=== PATIENT | male | born 1995 | race Caucasian/White ===

== ENCOUNTER 2016-12-04 06:40 | Inpatient (IN) | payer MEDICAID ==
[~2016-12-04] VITALS: Ht 185.4 cm; Wt 57.5 kg
[2016-12-04 07:19] LABS: BASOPHILS % (AUTO) 0.1 % (0.0-2.0); EOSINOPHILS # (AUTO) 0.02 K/uL (0.00-0.70); EOSINOPHILS % (AUTO) 0.25 % (1.0-6.0); HEMATOCRIT 48.1 % (41-53); HEMOGLOBIN 16.4 g/dL (13.5-17.5); LYMPHOCYTES % (AUTO) 10.6 % (22.0-44.0); MEAN CORPUSCULAR HEMOGLOBIN 29.7 pg (26.0-34.0); MEAN CORPUSCULAR VOLUME 87 fL (80-100); MONOCYTES # (AUTO) 0.1 K/uL (0.1-1.0); MONOCYTES % (AUTO) 0.9 % (2.0-9.0); NEUTROPHILS # (AUTO) 8.1 K/uL (1.8-7.7); PLATELET COUNT (AUTO) 230 K/uL (150-450); RED BLOOD CELL COUNT(AUTO) 5.51 MIL/uL (4.50-5.90); RED CELL DISTRIBUTION WIDTH 12.9 % (11.5-14.5); WHITE BLOOD COUNT (AUTO) 9.2 K/uL (4.5-11.0)
[2016-12-04 07:23] LABS: NEUTROPHILS % (AUTO) 88.2 % (40.0-70.0)
[2016-12-04 07:31] LABS: ANION GAP 11 mmol/L (8-16); CALCIUM, TOTAL 9.3 mg/dL (8.8-10.5); CARBON DIOXIDE 27 mmol/L (22-29); CHLORIDE 103 mmol/L (98-107); CREATININE 1.18 mg/dL (0.60-1.30); GLOMERULAR FILTR. RATE CALC > 60 mL/min (>60); POTASSIUM 3.2 mmol/L (3.5-5.1); SODIUM SERUM 141 mmol/L (136-145); UREA NITROGEN, BLOOD 17 mg/dL (7-18)
[2016-12-04 07:37] LABS: ALANINE AMINOTRANSFERASE 21 U/L (12-78); ALBUMIN 4.5 g/dL (3.4-5.0); ASPARTATE AMINOTRANSFERASE 17 U/L (15-37); BILIRUBIN,TOTAL 0.7 mg/dL (0.1-1.0); TOTAL PROTEIN, SERUM 8.3 g/dL (6.4-8.2)
[2016-12-04] MEDS: FLUoxetine HCL 20 MG CAPSULE PO SCH (08:52)
[2016-12-04] MEDS ORDERED: POTASSIUM CHLORIDE 20 MEQ ER TABLET PO ONE (10:15)
[2016-12-04 10:45] VITALS: BP 109/61
[2016-12-04] MEDS ORDERED: MAGNESIUM HYDROXIDE SUSPENSION 30 ML UDCUP PO PRN (12:30)
[2016-12-04] MEDS ORDERED: GuaiFENesin/D-METHORPHAN [SUGAR-FREE] 200-20MG/10 ML SYRUP UDCUP PO PRN (12:30)
[2016-12-04] MEDS ORDERED: LOPERAMIDE HCL 2 MG CAPSULE PO PRN (12:30)
[2016-12-04] MEDS ORDERED: PROMETHAZINE HCL 25 MG TABLET PO PRN (12:30)
[2016-12-04] MEDS ORDERED: MAG HYDROX/AL HYDROX/SIMETH ES 30 ML SUSPENSION UDCUP PO PRN (12:30)
[2016-12-04] MEDS ORDERED: TUBERCULIN, PURIFIED PROTEIN DERIVATIVE 5 TU/0.1 ML SYG ID ONE (12:30)
[2016-12-04] MEDS ORDERED: ACETAMINOPHEN 325 MG TABLET PO PRN (12:30)
[2016-12-04] MEDS ORDERED: INFLUENZA VIRUS VACCINE QVS 2017-18 (3YR+)/PF 60 MCG/0.5 ML SYRINGE IM ONE (13:30)
[2016-12-04 14:44] VITALS: BP 129/87
[2016-12-04] MEDS: QUEtiapine FUMARATE 100 MG TABLET PO PRN (15:19)
[2016-12-04 16:37] VITALS: BP 108/60
[2016-12-04] MEDS: THIAMINE HCL 100 MG TABLET PO SCH (16:44)
[2016-12-05 08:39] VITALS: BP 104/68
[2016-12-05] MEDS: MULTIVITAMINS WITH MINERALS, THERAPEUTIC TABLET PO SCH (09:37)
[2016-12-05] MEDS: FOLIC ACID 1 MG TABLET PO SCH (09:37)
[2016-12-05] MEDS: THIAMINE HCL 100 MG TABLET PO SCH ×2 (09:37→17:00)
[2016-12-05] MEDS: FLUoxetine HCL 20 MG CAPSULE PO SCH (09:37)
[2016-12-05] MEDS ORDERED: DiphenhydrAMINE HCL 50 MG/ML VIAL ONE (12:14)
[2016-12-05] MEDS ORDERED: HALOPERIDOL LACTATE 5 MG/ML VIAL ONE (12:14)
[2016-12-05] MEDS ORDERED: LORazepam 2 MG/ML VIAL ONE (12:14)
[2016-12-05] MEDS ORDERED: LORazepam 2 MG/ML VIAL IM ONE (12:15)
[2016-12-05] MEDS ORDERED: DiphenhydrAMINE HCL 50 MG/ML VIAL IM ONE (12:15)
[2016-12-05] MEDS ORDERED: HALOPERIDOL LACTATE 5 MG/ML VIAL IM ONE (12:15)
[2016-12-05] MEDS: DIVALPROEX SODIUM 500 MG ER TABLET PO SCH (21:00)
[2016-12-06] MEDS: MULTIVITAMINS WITH MINERALS, THERAPEUTIC TABLET PO SCH (08:17)
[2016-12-06] MEDS: FLUoxetine HCL 20 MG CAPSULE PO SCH (08:17)
[2016-12-06] MEDS: FOLIC ACID 1 MG TABLET PO SCH (08:17)
[2016-12-06] MEDS: THIAMINE HCL 100 MG TABLET PO SCH ×2 (08:17→17:50)
[2016-12-06 08:29] VITALS: BP 98/66
[2016-12-06] MEDS: LORazepam 2 MG TABLET PO PRN (13:00)
[2016-12-06] MEDS: DIVALPROEX SODIUM 500 MG ER TABLET PO SCH (21:00)
[2016-12-06] MEDS: ZOLPIDEM TARTRATE 10 MG TABLET PO PRN (22:52)
[2016-12-07] MEDS: THIAMINE HCL 100 MG TABLET PO SCH ×2 (08:26→16:09)
[2016-12-07] MEDS: FLUoxetine HCL 20 MG CAPSULE PO SCH (08:26)
[2016-12-07] MEDS: LORazepam 2 MG TABLET PO PRN ×2 (08:26→16:08)
[2016-12-07] MEDS: MULTIVITAMINS WITH MINERALS, THERAPEUTIC TABLET PO SCH (08:26)
[2016-12-07] MEDS: FOLIC ACID 1 MG TABLET PO SCH (08:26)
[2016-12-07 08:30] VITALS: BP 121/60
[2016-12-07] MEDS: QUEtiapine FUMARATE 100 MG TABLET PO PRN (09:51)
[2016-12-07] MEDS ORDERED: OLANZapine 5 MG RAPDIS TABLET PO PRN (10:45)
[2016-12-07] MEDS ORDERED: OLANZapine 5 MG RAPDIS TABLET PO ONE (10:45)
[2016-12-07] MEDS: HydrOXYzine PAMOATE 50 MG CAPSULE PO PRN (13:27)
[2016-12-07] MEDS ORDERED: DiphenhydrAMINE HCL 50 MG/ML VIAL IM ONE ×2 (16:15→17:00)
[2016-12-07] MEDS ORDERED: HALOPERIDOL LACTATE 5 MG/ML VIAL IM ONE (17:00)
[2016-12-07] MEDS ORDERED: LORazepam 2 MG/ML VIAL IM ONE (17:00)
[2016-12-07] MEDS ORDERED: OLANZapine 5 MG RAPDIS TABLET PO SCH (21:00)
[2016-12-07] MEDS: DIVALPROEX SODIUM 500 MG ER TABLET PO SCH (21:00)
[2016-12-08] MEDS: FOLIC ACID 1 MG TABLET PO SCH (08:32)
[2016-12-08] MEDS: THIAMINE HCL 100 MG TABLET PO SCH ×2 (08:32→17:24)
[2016-12-08] MEDS: FLUoxetine HCL 20 MG CAPSULE PO SCH (08:32)
[2016-12-08] MEDS: MULTIVITAMINS WITH MINERALS, THERAPEUTIC TABLET PO SCH (08:33)
[2016-12-08 08:54] VITALS: BP 127/72
[2016-12-08] MEDS ORDERED: LORazepam 2 MG/ML VIAL IM ONE (09:45)
[2016-12-08] MEDS ORDERED: DiphenhydrAMINE HCL 50 MG/ML VIAL IM ONE (09:45)
[2016-12-08] MEDS ORDERED: HALOPERIDOL LACTATE 5 MG/ML VIAL IM ONE (09:45)
[2016-12-08] MEDS ORDERED: LORazepam 2 MG/ML VIAL ONE (09:49)
[2016-12-08] MEDS ORDERED: HALOPERIDOL LACTATE 5 MG/ML VIAL ONE (09:49)
[2016-12-08] MEDS ORDERED: DiphenhydrAMINE HCL 50 MG/ML VIAL ONE (09:50)
[2016-12-08 19:21] VITALS: BP 113/73
[2016-12-08] MEDS: DIVALPROEX SODIUM 500 MG ER TABLET PO SCH (21:02)
[2016-12-08] MEDS: QUEtiapine FUMARATE 200 MG TABLET PO SCH (21:03)
[2016-12-08] MEDS: ZOLPIDEM TARTRATE 10 MG TABLET PO PRN (21:03)
[2016-12-09] MEDS: LORazepam 2 MG TABLET PO PRN ×2 (08:06→15:56)
[2016-12-09] MEDS: FOLIC ACID 1 MG TABLET PO SCH (08:06)
[2016-12-09] MEDS: MULTIVITAMINS WITH MINERALS, THERAPEUTIC TABLET PO SCH (08:06)
[2016-12-09] MEDS: THIAMINE HCL 100 MG TABLET PO SCH ×2 (08:06→16:10)
[2016-12-09] MEDS: QUEtiapine FUMARATE 100 MG TABLET PO PRN (09:05)
[2016-12-09] MEDS: HydrOXYzine PAMOATE 50 MG CAPSULE PO PRN (09:05)
[2016-12-09 11:24] VITALS: BP 105/71
[2016-12-09 16:33] VITALS: BP 111/79
[2016-12-09] MEDS: QUEtiapine FUMARATE 200 MG TABLET PO SCH (20:27)
[2016-12-09] MEDS: DIVALPROEX SODIUM 500 MG ER TABLET PO SCH (20:27)
[2016-12-10] MEDS: MULTIVITAMINS WITH MINERALS, THERAPEUTIC TABLET PO SCH (07:56)
[2016-12-10] MEDS: THIAMINE HCL 100 MG TABLET PO SCH ×2 (07:56→16:16)
[2016-12-10] MEDS: FOLIC ACID 1 MG TABLET PO SCH (07:57)
[2016-12-10] MEDS: LORazepam 2 MG TABLET PO PRN ×2 (07:58→12:21)
[2016-12-10] MEDS: QUEtiapine FUMARATE 100 MG TABLET PO PRN ×2 (08:12→16:16)
[2016-12-10 08:14] VITALS: BP 95/69
[2016-12-10 17:32] VITALS: BP 108/76
[2016-12-10] MEDS: DIVALPROEX SODIUM 500 MG ER TABLET PO SCH (20:28)
[2016-12-10] MEDS: QUEtiapine FUMARATE 200 MG TABLET PO SCH (20:29)
[2016-12-11] MEDS: MULTIVITAMINS WITH MINERALS, THERAPEUTIC TABLET PO SCH (08:18)
[2016-12-11] MEDS: THIAMINE HCL 100 MG TABLET PO SCH ×2 (08:18→17:04)
[2016-12-11] MEDS: FOLIC ACID 1 MG TABLET PO SCH (08:18)
[2016-12-11 08:41] VITALS: BP 101/58
[2016-12-11] MEDS ORDERED: QUEtiapine FUMARATE 200 MG TABLET PO SCH (21:00)
[2016-12-11] MEDS: DIVALPROEX SODIUM 500 MG ER TABLET PO SCH (21:01)
[2016-12-11] MEDS: ZOLPIDEM TARTRATE 10 MG TABLET PO PRN (21:01)
[2016-12-12] MEDS: QUEtiapine FUMARATE 100 MG TABLET PO PRN ×2 (09:07→14:01)
[2016-12-12] MEDS: MULTIVITAMINS WITH MINERALS, THERAPEUTIC TABLET PO SCH (09:07)
[2016-12-12] MEDS: LORazepam 2 MG TABLET PO PRN ×2 (09:07→14:02)
[2016-12-12] MEDS: THIAMINE HCL 100 MG TABLET PO SCH ×2 (09:07→17:16)
[2016-12-12] MEDS: FOLIC ACID 1 MG TABLET PO SCH (09:07)
[2016-12-12 09:44] VITALS: BP 142/86
[2016-12-12] MEDS ORDERED: TUBERCULIN, PURIFIED PROTEIN DERIVATIVE 5 TU/0.1 ML SYG ID ONE (15:30)
[2016-12-12] MEDS: QUEtiapine FUMARATE 25 MG TABLET PO SCH (17:15)
[2016-12-12] MEDS: DIVALPROEX SODIUM 500 MG ER TABLET PO SCH (20:36)
[2016-12-12] MEDS ORDERED: QUEtiapine FUMARATE 300 MG TABLET PO SCH (21:00)
[2016-12-12] MEDS ORDERED: QUEtiapine FUMARATE 200 MG TABLET PO SCH (21:00)
[2016-12-12] MEDS: ZOLPIDEM TARTRATE 10 MG TABLET PO PRN (21:42)
[2016-12-12 22:52] VITALS: BP 139/89
[2016-12-13] MEDS: LORazepam 2 MG TABLET PO PRN ×2 (09:52→13:52)
[2016-12-13] MEDS: QUEtiapine FUMARATE 25 MG TABLET PO SCH ×3 (09:52→16:23)
[2016-12-13] MEDS: FOLIC ACID 1 MG TABLET PO SCH (09:52)
[2016-12-13] MEDS: MULTIVITAMINS WITH MINERALS, THERAPEUTIC TABLET PO SCH (09:52)
[2016-12-13] MEDS: THIAMINE HCL 100 MG TABLET PO SCH ×2 (09:52→16:23)
[2016-12-13] MEDS: QUEtiapine FUMARATE 100 MG TABLET PO PRN ×2 (09:52→13:52)
[2016-12-13 10:25] VITALS: BP 117/80
[2016-12-13] MEDS ORDERED: QUET200T29 PO ×2 (11:18→12:32)
[2016-12-13] MEDS ORDERED: NALT50TA6 PO (11:18)
[2016-12-13] MEDS ORDERED: DIVA500T52 PO (11:18)
[2016-12-13] MEDS ORDERED: QUET25TA34 PO (12:32)
[2016-12-13 16:43] VITALS: BP 113/72
[2016-12-13] MEDS ORDERED: HEPATITIS A VACCINE, INACTI [ADULT] 1,440 UNITS/ML VIAL IM ONE (19:00)
[2016-12-13] MEDS: DIVALPROEX SODIUM 500 MG ER TABLET PO SCH (20:35)
[2016-12-13] MEDS ORDERED: QUEtiapine FUMARATE 200 MG TABLET PO SCH (21:00)
[2016-12-13] MEDS: ZOLPIDEM TARTRATE 10 MG TABLET PO PRN (21:22)
[2016-12-14 06:02] VITALS: BP 118/68
[2016-12-14] MEDS: QUEtiapine FUMARATE 25 MG TABLET PO SCH (08:17)
[2016-12-14] MEDS: MULTIVITAMINS WITH MINERALS, THERAPEUTIC TABLET PO SCH (08:18)
[2016-12-14] MEDS: FOLIC ACID 1 MG TABLET PO SCH (08:18)
[2016-12-14] MEDS: THIAMINE HCL 100 MG TABLET PO SCH (08:18)
[2016-12-14] MEDS ORDERED: INFLUENZA VIRUS VACCINE QVS 2017-18 (3YR+)/PF 60 MCG/0.5 ML SYRINGE IM ONE (08:45)
[2016-12-14] MEDS ORDERED: NALTREXONE HCL 50 MG TABLET PO SCH (09:00)
[2016-12-14] MEDS: QUEtiapine FUMARATE 100 MG TABLET PO PRN (10:00)
[2016-12-14] MEDS: LORazepam 2 MG TABLET PO PRN (10:00)
[2016-12-14 10:50] VITALS: BP 102/70
== END 2016-12-14 11:35 | disposition home or self-care (01) | DRG 751 ==
LOC: EMS 06:42 → AHU 09:28 → 3EI 14:06 → 3EC 12-05 14:31 → 3EI 12-11 17:45
PROVIDERS: ADMIT Psychiatry & Neurology Psychiatry; ATTEND Psychiatry & Neurology Psychiatry
PROC: 3E0234Z Introduction of Serum, Toxoid and Vaccine into Muscle, Percutaneous Approach (ICD-10-PCS; principal; 2016-12-13)
PROC: 3E0234Z Introduction of Serum, Toxoid and Vaccine into Muscle, Percutaneous Approach (ICD-10-PCS; 2016-12-14)
DX: F32.2 Major depressive disorder, single episode, severe without psychotic features (principal); R44.0 Auditory hallucinations; Z91.19 Patient's noncompliance with other medical treatment and regimen; F12.90 Cannabis use, unspecified, uncomplicated; M79.641 Pain in right hand; Z23 Encounter for immunization; Y93.89 Activity, other specified; Y92.89 Other specified places as the place of occurrence of the external cause; Y99.8 Other external cause status; Z78.1 Physical restraint status
CPT/HCPCS: 90471; 90632; 99285; G0480; J1200; J1630; J2060

== ENCOUNTER 2018-04-01 19:32 | Emergency (ER) | payer MEDICAID, OTHER ==
[~2018-04-01] VITALS: Ht 185.4 cm; Wt 55.9 kg
[~2018-04-01 19:32] MED LIST: DIVA500T52 PO; NALT50TA6 PO; QUET200T29 PO; QUET25TA34 PO
[2018-04-01 21:08] VITALS: BP 126/72
[2018-04-01] MEDS ORDERED: PENICILLIN V POTASSIUM 500 MG TABLET PO ONE (21:15)
[2018-04-01] MEDS ORDERED: KETOROLAC TROMETHAMINE 30 MG/ML VIAL IM ONE (21:15)
== END 2018-04-01 21:24 | disposition home or self-care (01) ==
LOC: EMS 19:33
DX: K02.9 Dental caries, unspecified (principal); K21.9 Gastro-esophageal reflux disease without esophagitis; F32.9 Major depressive disorder, single episode, unspecified; F12.90 Cannabis use, unspecified, uncomplicated; F17.210 Nicotine dependence, cigarettes, uncomplicated
CPT/HCPCS: 96372; 99283; 99406; J1885

== ENCOUNTER 2018-08-04 17:25 | Inpatient (IN) | payer MEDICAID, OTHER ==
[~2018-08-04] VITALS: Ht 188 cm; Wt 60.5 kg
[2018-08-04 17:59] LABS: BASOPHILS % (AUTO) 0.8 % (0.0-2.0); EOSINOPHILS % (AUTO) 1.4 % (1.0-6.0); HEMATOCRIT 45.8 % (41-53); HEMOGLOBIN 15.7 g/dL (13.5-17.5); LYMPHOCYTES # (AUTO) 2.5 K/uL (1.0-4.8); LYMPHOCYTES % (AUTO) 33.4 % (22.0-44.0); MEAN CORPUSCULAR HEMOGLOBIN 29.3 pg (26.0-34.0); MEAN CORPUSCULAR HGB CONC 34.2 G/dL (31.0-37.0); MEAN CORPUSCULAR VOLUME 86 fL (80-100); MONOCYTES # (AUTO) 0.3 K/uL (0.1-1.0); MONOCYTES % (AUTO) 4.3 % (2.0-9.0); NEUTROPHILS # (AUTO) 4.5 K/uL (1.8-7.7); NEUTROPHILS % (AUTO) 60.1 % (40.0-70.0); PLATELET COUNT (AUTO) 309 K/uL (150-450); RED BLOOD CELL COUNT(AUTO) 5.36 MIL/uL (4.50-5.90); RED CELL DISTRIBUTION WIDTH 13.7 % (11.5-14.5)
[2018-08-04 18:08] LABS: ANION GAP 14 mmol/L (8-16); CALCIUM, TOTAL 9.4 mg/dL (8.8-10.5); CARBON DIOXIDE 22 mmol/L (22-29); CHLORIDE 104 mmol/L (98-107); CREATININE 1.26 mg/dL (0.60-1.30); GLOMERULAR FILTR. RATE CALC > 60 mL/min (>60); GLUCOSE,RANDOM 91 mg/dL (70-110); POTASSIUM 3.7 mmol/L (3.5-5.1); SODIUM SERUM 140 mmol/L (136-145); UREA NITROGEN, BLOOD 9 mg/dL (7-18)
[2018-08-04 18:14] LABS: ALANINE AMINOTRANSFERASE 21 U/L (12-78); ALBUMIN 4.5 g/dL (3.4-5.0); ALKALINE PHOSPHATASE 90 U/L (46-116); ASPARTATE AMINOTRANSFERASE 16 U/L (15-37); BILIRUBIN,TOTAL 0.6 mg/dL (0.1-1.0); TOTAL PROTEIN, SERUM 8.3 g/dL (6.4-8.2)
[2018-08-04 20:18] LABS: APPEARANCE,URINE CLEAR (CLEAR); BILIRUBIN,URINE NEGATIVE (NEGATIVE); GLUCOSE, URINE (UA) NEGATIVE (NEGATIVE); KETONES,URINE NEGATIVE (NEGATIVE); LEUKOCYTE ESTERASE ,URINE NEGATIVE (NEGATIVE); NITRATE,URINE NEGATIVE (NEGATIVE); OCCULT BLOOD,URINE NEGATIVE (NEGATIVE); PROTEIN,URINE TRACE (NEGATIVE)
[2018-08-04 20:23] LABS: AMPHET/METH SCREEN,URINE NEGATIVE (NEGATIVE); BARBITURATE SCREEN, URINE NEGATIVE (NEGATIVE); BENZODIAZEPINES SCREEN,URINE NEGATIVE (NEGATIVE); CANNABINOID SCREEN,URINE POSITIVE (NEGATIVE); COCAINE SCREEN,URINE NEGATIVE (NEGATIVE); METHADONE SCREEN, URINE NEGATIVE (NEGATIVE); OPIATE SCREEN,URINE NEGATIVE (NEGATIVE)
[2018-08-04 20:27] LABS: PHENCYCLIDINE SCREEN,URINE NEGATIVE (NEGATIVE)
[2018-08-04] MEDS ORDERED: ACETAMINOPHEN 500 MG TABLET PO ONE (20:45)
[2018-08-04] MEDS ORDERED: IBUPROFEN 600 MG TABLET PO ONE (21:45)
[2018-08-04] MEDS ORDERED: TraMADol HCL 50 MG TABLET PO ONE (22:00)
[2018-08-04] MEDS ORDERED: DiphenhydrAMINE HCL 50 MG/ML VIAL IM ONE (22:15)
[2018-08-04] MEDS ORDERED: LORazepam 2 MG/ML VIAL IM ONE (22:15)
[2018-08-04] MEDS ORDERED: HALOPERIDOL LACTATE 5 MG/ML VIAL IM ONE (22:15)
[2018-08-04] MEDS ORDERED: DiphenhydrAMINE HCL 50 MG CAPSULE ONE (23:37)
[2018-08-04] MEDS ORDERED: LORazepam 2 MG TABLET PO ONE (23:45)
[2018-08-04] MEDS ORDERED: DiphenhydrAMINE HCL 25 MG CAPSULE PO ONE (23:45)
[2018-08-05] MEDS: HALOPERIDOL 5 MG TABLET PO PRN ×2 (00:29→18:46)
[2018-08-05] MEDS: ZOLPIDEM TARTRATE 10 MG TABLET PO PRN ×2 (03:17→03:55)
[2018-08-05] MEDS: ACETAMINOPHEN 325 MG TABLET PO ONE ×2 (03:17→03:55)
[2018-08-05 07:53] LABS: CHOL/HDL RATIO 3.8 (4.2-7.3)
[2018-08-05] MEDS: LORazepam 2 MG TABLET PO PRN (18:15)
[2018-08-05] MEDS: MIRTAZAPINE 15 MG TABLET PO SCH (20:43)
[2018-08-06] MEDS ORDERED: IBUPROFEN 800 MG TABLET PO ONE (03:00)
[2018-08-06] MEDS: LORazepam 2 MG TABLET PO PRN ×2 (03:02→18:16)
[2018-08-06] MEDS: ARIPiprazole 5 MG TABLET PO SCH (08:48)
[2018-08-06 09:56] VITALS: BP 108/85
[2018-08-06] MEDS: BACITRACIN 28.4 GM OINTMENT TP SCH ×2 (14:17→16:22)
[2018-08-06 16:28] VITALS: BP 101/56
[2018-08-06 18:16] VITALS: BP 102/61
[2018-08-06] MEDS: IBUPROFEN 600 MG TABLET PO PRN (18:16)
[2018-08-06] MEDS: MIRTAZAPINE 15 MG TABLET PO SCH (20:08)
[2018-08-06] MEDS: ZOLPIDEM TARTRATE 10 MG TABLET PO PRN (20:08)
[2018-08-07 07:03] VITALS: BP 109/67
[2018-08-07] MEDS: LORazepam 2 MG TABLET PO PRN ×3 (07:03→17:05)
[2018-08-07] MEDS: IBUPROFEN 600 MG TABLET PO PRN ×2 (07:03→20:32)
[2018-08-07 08:03] VITALS: BP 106/60
[2018-08-07] MEDS: ARIPiprazole 5 MG TABLET PO SCH (08:14)
[2018-08-07] MEDS: BACITRACIN 28.4 GM OINTMENT TP SCH ×2 (08:16→16:16)
[2018-08-07 10:37] VITALS: BP 111/75
[2018-08-07] MEDS: NICOTINE 21 MG/24 HOUR PATCH TD SCH (14:31)
[2018-08-07 17:22] VITALS: BP 115/73
[2018-08-07] MEDS: MIRTAZAPINE 15 MG TABLET PO SCH (20:31)
[2018-08-07 20:32] VITALS: BP 113/72
[2018-08-07] MEDS: ZOLPIDEM TARTRATE 10 MG TABLET PO PRN (20:32)
[2018-08-08 03:15] VITALS: BP 113/75
[2018-08-08] MEDS: LORazepam 2 MG TABLET PO PRN ×3 (03:25→16:35)
[2018-08-08] MEDS: BACITRACIN 28.4 GM OINTMENT TP SCH ×2 (08:18→16:35)
[2018-08-08] MEDS: ARIPiprazole 5 MG TABLET PO SCH (08:18)
[2018-08-08] MEDS: NICOTINE 21 MG/24 HOUR PATCH TD SCH (08:18)
[2018-08-08] MEDS: IBUPROFEN 600 MG TABLET PO PRN ×2 (08:20→18:25)
[2018-08-08 08:28] VITALS: BP 109/72
[2018-08-08 09:28] VITALS: BP 122/63
[2018-08-08 17:32] VITALS: BP 105/62
[2018-08-08] MEDS: ZOLPIDEM TARTRATE 10 MG TABLET PO PRN (20:34)
[2018-08-08] MEDS ORDERED: MIRTAZAPINE 30 MG TABLET PO SCH (21:00)
[2018-08-09 05:42] VITALS: BP 132/79
[2018-08-09] MEDS: IBUPROFEN 600 MG TABLET PO PRN ×3 (05:48→20:25)
[2018-08-09] MEDS: LORazepam 2 MG TABLET PO PRN ×2 (05:48→13:03)
[2018-08-09] MEDS: MULTIVITAMINS, THERAPEUTIC TABLET PO SCH (08:28)
[2018-08-09] MEDS: ARIPiprazole 5 MG TABLET PO SCH (08:28)
[2018-08-09] MEDS: NICOTINE 21 MG/24 HOUR PATCH TD SCH (08:31)
[2018-08-09 08:36] VITALS: BP 119/61
[2018-08-09] MEDS: ACETAMINOPHEN 325 MG TABLET PO PRN (08:36)
[2018-08-09] MEDS: BACITRACIN 28.4 GM OINTMENT TP SCH ×2 (09:00→16:59)
[2018-08-09 13:03] VITALS: BP 121/80
[2018-08-09] MEDS ORDERED: ARIPiprazole 5 MG TABLET PO ONE (13:15)
[2018-08-09] MEDS: ZOLPIDEM TARTRATE 10 MG TABLET PO PRN (20:24)
[2018-08-09 20:25] VITALS: BP 118/69
[2018-08-09] MEDS ORDERED: MIRTAZAPINE 15 MG TABLET PO SCH (21:00)
[2018-08-10 04:17] VITALS: BP 108/73
[2018-08-10] MEDS: IBUPROFEN 600 MG TABLET PO PRN ×2 (04:31→11:03)
[2018-08-10] MEDS: LORazepam 2 MG TABLET PO PRN (06:36)
[2018-08-10] MEDS: MULTIVITAMINS, THERAPEUTIC TABLET PO SCH (08:11)
[2018-08-10] MEDS: ACETAMINOPHEN 325 MG TABLET PO PRN (08:14)
[2018-08-10 08:15] VITALS: BP 107/71
[2018-08-10] MEDS: BACITRACIN 28.4 GM OINTMENT TP SCH (08:15)
[2018-08-10] MEDS: NICOTINE 21 MG/24 HOUR PATCH TD SCH (08:15)
[2018-08-10] MEDS ORDERED: ARIPiprazole 10 MG TABLET PO SCH (09:00)
[2018-08-10 11:00] VITALS: BP 102/63
[2018-08-10 11:04] VITALS: BP 102/63
[2018-08-10] MEDS ORDERED: ARIP10TA8 PO (12:38)
[2018-08-10] MEDS ORDERED: MIRT15 PO (12:39)
== END 2018-08-10 13:45 | disposition home or self-care (01) | DRG 751 ==
LOC: EMS 17:25 → 3EC 08-06 08:31 → 3EX 08-06 09:05
PROVIDERS: ADMIT Psychiatry & Neurology Psychiatry; ATTEND Psychiatry & Neurology Psychiatry
DX: F33.2 Major depressive disorder, recurrent severe without psychotic features (principal); R45.851 Suicidal ideations; K50.90 Crohn's disease, unspecified, without complications; Z91.19 Patient's noncompliance with other medical treatment and regimen; F12.90 Cannabis use, unspecified, uncomplicated; K21.9 Gastro-esophageal reflux disease without esophagitis; F41.9 Anxiety disorder, unspecified; F17.200 Nicotine dependence, unspecified, uncomplicated; Z91.5 Personal history of self-harm; S92.002A Unspecified fracture of left calcaneus, initial encounter for closed fracture; Y93.89 Activity, other specified; Y92.89 Other specified places as the place of occurrence of the external cause; Y99.8 Other external cause status; X83.8XXA Intentional self-harm by other specified means, initial encounter
CPT/HCPCS: 29515; 97161; G0378; G0480

== ENCOUNTER 2018-11-13 19:08 | Emergency (ER) | payer MEDICAID ==
[~2018-11-13] VITALS: Ht 185.4 cm; Wt 63.6 kg
[~2018-11-13 19:08] MED LIST changes: +ARIP10TA8 PO; -DIVA500T52 PO; +MIRT15 PO; -NALT50TA6 PO; -QUET200T29 PO; -QUET25TA34 PO
[2018-11-13 20:56] LABS: BASOPHILS % (AUTO) 0.6 % (0.0-2.0); EOSINOPHILS % (AUTO) 1.4 % (1.0-6.0); HEMATOCRIT 48.1 % (41-53); HEMOGLOBIN 16.2 g/dL (13.5-17.5); LYMPHOCYTES # (AUTO) 1.8 K/uL (1.0-4.8); LYMPHOCYTES % (AUTO) 31.2 % (22.0-44.0); MEAN CORPUSCULAR HEMOGLOBIN 28.7 pg (26.0-34.0); MEAN CORPUSCULAR HGB CONC 33.7 G/dL (31.0-37.0); MEAN CORPUSCULAR VOLUME 85 fL (80-100); MONOCYTES # (AUTO) 0.3 K/uL (0.1-1.0); NEUTROPHILS # (AUTO) 3.5 K/uL (1.8-7.7); NEUTROPHILS % (AUTO) 60.8 % (40.0-70.0); PLATELET COUNT (AUTO) 245 K/uL (150-450); RED BLOOD CELL COUNT(AUTO) 5.64 MIL/uL (4.50-5.90); RED CELL DISTRIBUTION WIDTH 13.5 % (11.5-14.5)
[2018-11-13 21:10] LABS: PROTHROMBIN TIME 10.7 SEC (9.4-11.6)
[2018-11-13 21:11] LABS: ALANINE AMINOTRANSFERASE 17 U/L (12-78); ALBUMIN 4.9 g/dL (3.4-5.0); ALKALINE PHOSPHATASE 89 U/L (46-116); ANION GAP 7 mmol/L (8-16); ASPARTATE AMINOTRANSFERASE 15 U/L (15-37); BILIRUBIN,TOTAL 0.7 mg/dL (0.1-1.0); CALCIUM, TOTAL 9.8 mg/dL (8.8-10.5); CARBON DIOXIDE 30 mmol/L (22-29); CHLORIDE 103 mmol/L (98-107); CREATININE 0.98 mg/dL (0.60-1.30); GLOMERULAR FILTR. RATE CALC > 60 mL/min (>60); GLUCOSE,RANDOM 79 mg/dL (70-110); LIPASE 251 U/L (73-393); POTASSIUM 3.6 mmol/L (3.5-5.1); SODIUM SERUM 140 mmol/L (136-145); TOTAL PROTEIN, SERUM 8.4 g/dL (6.4-8.2); UREA NITROGEN, BLOOD 8 mg/dL (7-18)
[2018-11-13 22:15] VITALS: BP 132/84
== END 2018-11-13 22:20 | disposition home or self-care (01) ==
LOC: EMS 19:08
DX: R10.13 Epigastric pain (principal); R74.8 Abnormal levels of other serum enzymes; K21.9 Gastro-esophageal reflux disease without esophagitis; F32.9 Major depressive disorder, single episode, unspecified; F17.210 Nicotine dependence, cigarettes, uncomplicated; F12.90 Cannabis use, unspecified, uncomplicated; Z79.899 Other long term (current) drug therapy; Z53.20 Procedure and treatment not carried out because of patient's decision for unspecified reasons
CPT/HCPCS: 74176

== ENCOUNTER 2019-04-17 04:07 | Emergency (ER) | payer MEDICAID ==
[~2019-04-17] VITALS: Ht 188 cm; Wt 54.5 kg
[~2019-04-17 04:07] MED LIST changes: +MIRT-92 PO; -MIRT15 PO
[2019-04-17 08:03] LABS: BASOPHILS % (AUTO) 0.7 % (0.0-2.0); HEMATOCRIT 46.2 % (41-53); HEMOGLOBIN 15.9 g/dL (13.5-17.5); LYMPHOCYTES # (AUTO) 1.3 K/uL (1.0-4.8); LYMPHOCYTES % (AUTO) 14.5 % (22.0-44.0); MEAN CORPUSCULAR HEMOGLOBIN 29.4 pg (26.0-34.0); MEAN CORPUSCULAR HGB CONC 34.5 G/dL (31.0-37.0); MEAN CORPUSCULAR VOLUME 85 fL (80-100); MONOCYTES # (AUTO) 0.3 K/uL (0.1-1.0); MONOCYTES % (AUTO) 3.2 % (2.0-9.0); NEUTROPHILS # (AUTO) 7.3 K/uL (1.8-7.7); NEUTROPHILS % (AUTO) 80.6 % (40.0-70.0); PLATELET COUNT (AUTO) 241 K/uL (150-450); RED BLOOD CELL COUNT(AUTO) 5.43 MIL/uL (4.50-5.90); RED CELL DISTRIBUTION WIDTH 13.5 % (11.5-14.5)
[2019-04-17 08:14] LABS: ANION GAP 6 mmol/L (8-16); CALCIUM, TOTAL 9.2 mg/dL (8.8-10.5); CARBON DIOXIDE 28 mmol/L (22-29); CHLORIDE 106 mmol/L (98-107); CREATININE 0.83 mg/dL (0.60-1.30); GLOMERULAR FILTR. RATE CALC > 60 mL/min (>60); GLUCOSE,RANDOM 92 mg/dL (70-110); POTASSIUM 3.5 mmol/L (3.5-5.1); SODIUM SERUM 140 mmol/L (136-145); UREA NITROGEN, BLOOD 10 mg/dL (7-18)
[2019-04-17 08:28] LABS: THYROID STIMULATING HORMONE 1.43 uIU/mL (0.36-3.74)
[2019-04-17 08:48] VITALS: BP 107/68
[2019-04-17 09:03] LABS: AMPHET/METH SCREEN,URINE NEGATIVE (NEGATIVE); BARBITURATE SCREEN, URINE NEGATIVE (NEGATIVE); BENZODIAZEPINES SCREEN,URINE NEGATIVE (NEGATIVE); CANNABINOID SCREEN,URINE POSITIVE (NEGATIVE); COCAINE SCREEN,URINE NEGATIVE (NEGATIVE); METHADONE SCREEN, URINE NEGATIVE (NEGATIVE); OPIATE SCREEN,URINE NEGATIVE (NEGATIVE)
[2019-04-17 09:04] LABS: PHENCYCLIDINE SCREEN,URINE NEGATIVE (NEGATIVE)
== END 2019-04-17 09:30 | disposition home or self-care (01) ==
LOC: EMS 04:07
DX: F41.9 Anxiety disorder, unspecified (principal); K21.9 Gastro-esophageal reflux disease without esophagitis; F32.9 Major depressive disorder, single episode, unspecified; F17.210 Nicotine dependence, cigarettes, uncomplicated; F12.90 Cannabis use, unspecified, uncomplicated; Z79.899 Other long term (current) drug therapy
CPT/HCPCS: 84443; 93005

== ENCOUNTER → 2024-01-05 | Emergency (ER) | payer MEDICAID ==
[~2024-01-05] VITALS: Ht 188 cm; Wt 59.1 kg
[~2024-01-05] MED LIST changes: -ARIP10TA8 PO; +MIRT-89 PO; -MIRT-92 PO
[2024-01-05 19:23] VITALS: BP 96/58; PULSE 84; RESP 18; TEMP 97.9; O2SAT 99
[2024-01-05] MEDS: PERTUSS(ACELL),DIPH,TET/PF 0.5 ML SYRINGE [ADULT] IM. ONE (21:28)
== END | disposition still patient (30) ==
LOC: EMS 18:56
DX: R63.0 Anorexia (principal); Z23 Encounter for immunization; Z53.21 Procedure and treatment not carried out due to patient leaving prior to being seen by health care provider
CPT/HCPCS: 90471; 90715